=== PATIENT | male | born 1985 | race Caucasian/White ===

== ENCOUNTER 2022-03-16 13:08 | Outpatient (CLI) | payer OTHER ==
[2022-03-16 13:50] VITALS: BP 110/72
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
== END 2022-03-16 13:09 | disposition home or self-care (01) ==
LOC: SC 13:08
PROVIDERS: ATTEND Nurse Practitioner Family
DX: R06.83 Snoring (principal); G47.8 Other sleep disorders; R51.9 Headache, unspecified; G47.10 Hypersomnia, unspecified; R53.83 Other fatigue; F32.A Depression, unspecified; E66.9 Obesity, unspecified; Z68.34 Body mass index [BMI] 34.0-34.9, adult
CPT/HCPCS: 99203; 99212

== ENCOUNTER 2022-04-28 15:09 | Outpatient (CLI) | payer OTHER ==
[2022-04-28 15:57] VITALS: BP 120/64
--- NOTE | 2022-04-28 15:57 | SLEEP CARE CONSULTATION ---
Information from patient questionnaire entered by Yamel Lal. I have reviewed and concur with the information entered by Yamel Lal. This document represents the service I personally performed and the decisions made by me, Padmini Ware ARNP. History of Present Illness Service Date and Time: 04/28/2022 1509 Initial [place] Sleepiness Scale score: 12 (02/23/22) Current [place] Sleepiness Scale score: 15 Additional HPI information: LILIAN RALPH returns for follow up and results of the recently performed polysomnography. I explained the pathophysiology behind obstructive sleep apnea. We then spent quite a bit of time discussing different treatment options. For mild obstructive sleep apnea, surgery and oral appliance are alternatives to nasal CPAP therapy but in moderate or severe cases, nasal CPAP is the most effective and reliable treatment. Because apnea is primarily in supine position, then positional management therapy could be effective. Methods discussed such as positioning with pillows to prevent supine sleep. I reviewed the impact of weight changes on sleep apnea and strongly recommended losing weight. After some discussion, the patient opted to go with the nasal CPAP therapy. Nasal autoCPAP set at 4-15 cmH20 will be ordered with rationale explained. A manual titration study will be ordered if unable to find optimal pressure with office adjustments. I explained how CPAP machine works and what to expect when using the machine. Using CPAP every night in order to get used to it was emphasized. Patient advised to put CPAP mask on before getting into bed so as not to fall asleep without CPAP. To assist acclimation to CPAP use, it could also be used for a short time during day while reading or watching TV. The patient was instructed to call the CPAP supplier to discuss any mechanical problem that may occur. If the mask given is uncomfortable or is difficult to keep on through the night even with adjustment, contact the CPAP supplier as many will replace with another mask style if notified before 30 days. If snoring or perceives is not getting enough air or too much air from the machine, notify this office. Patient counseled not drink alcohol less than 4 hours before bedtime as it can increase snoring and apnea. Patient was cautioned about risks of drowsy driving until sleepiness symptoms resolve. Sleep Study - Results Type of Sleep Study: Polysomnography (COMPLETED 04/12/22) Prior sleep studies: No Polysomnography/Home Sleep Study results: IMPRESSION: The quality of the study is good. The patient had normal sleep efficiency. The sleep architecture was abnormal for sleep fragmentation and reduced amount of time spent in slow wave sleep (N3). Respiratory monitoring showed moderate obstructive sleep apnea-hypopnea (AHI = 26.6) associated with frequent arousals, oxyhemoglobin desaturation and mild hypoxia (bertram oxygen saturation of 84%). The respiratory events occurred almost exclusively during supine sleep (supine AHI = 33.8; non-supine = 2.71). Snore was light to loud in intensity. There was no significant periodic leg movement of sleep. Cardiac rhythm was normal sinus rhythm without significant arrhythmia. No abnormal behavior (parasomnia) observed during the n ight. Allergies and Home Medications Drug allergies reviewed: Yes (NKDA) Home medication list reviewed: Yes (no changes) Review of Systems Review of systems same as previous: Yes (no changes) Physical Exam Vital signs obtained and entered by: YAMEL Fajardo MA Blood Pressure: 120/64 (left arm) Cuff size: regular Heart Rate: 71 O2 Saturation: 97 Height: 5 ft 7.5 in Weight: 226 lb 3.2 oz Body Mass Index: 34.9 BMI Classification: Obese Impression and Plan 1. Obstructive Sleep Apnea-Hypopnea Syndrome, moderate, with lowest oxygen saturation of 84%. Obviously this is the cause of the patients symptoms of unrefreshed sleep, and excessive daytime sleepiness. Positive pressure therapy could benefit anxiety, depression and migraines. As mentioned above, the patient will be started on nasal autoCPAP therapy with pressure set at 4-15 cmH2O. A manual titration study will be completed if unable to find optimal treatment pressure with office adjustments. Compliance guidelines also reviewed. A copy of compliance guidelines will be given for reference at check out. Because the apnea is more severe supine, I instructed to avoid sleeping supine using pillow positioning until able to start CPAP use. 2. Hypoxemia, mild, with a bertram oxygen saturation of 84% and 9.0 minutes spent under 90%. His baseline oxygen saturation was normal with an average oxygen saturation of 94%. * Nasal auto CPAP therapy, pressure at 4-15 cm H2O. * Attempt to lose weight. * Avoid alcohol consumption near bedtime. * Avoid supine sleep until using CPAP. * The patient is again cautioned about driving until sleepiness completely resolves. * Return one month after CPAP obtained. I will assess response to therapy and compliance at that time. Counseling Topics: Weight loss health impact Visit Type: In Office Time Spent with Patient (minutes): 21 Provider Statement: I spent 100% of the Face to Face Visit with the patient with greater than 50% spent counseling the patient and coordination of care.
== END 2022-04-28 15:10 | disposition home or self-care (01) ==
LOC: SC 15:09
PROVIDERS: ATTEND Nurse Practitioner Family
DX: G47.33 Obstructive sleep apnea (adult) (pediatric) (principal); R09.02 Hypoxemia; E66.9 Obesity, unspecified; Z68.34 Body mass index [BMI] 34.0-34.9, adult
CPT/HCPCS: 99212; 99213

== ENCOUNTER 2022-06-02 11:46 | Emergency (ER) | payer OTHER ==
[2022-06-02 11:58] VITALS: BP 115/73
--- NOTE | 2022-06-02 12:22 | ED Physician Documentation ---
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 Since then he has had a recurrent issue with pain in the right foot in the lateral distal foot. Its not too bad if he can walk on the medial foot. And compression helps. 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 Subsequent to that today he has increased pain and cannot walk. PD PAST MEDICAL HISTORY - Present Medications Home Medications: Ambulatory Orders Medication Instructions Recorded Confirmed SUMAtriptan [Imitrex] 25 mg PO ONCE PRN 06/02/22 06/02/22 - Allergies Allergies/Adverse Reactions: Allergies Allergy/AdvReac Type Severity Reaction Status Date / Time No Known Drug Allergies Allergy Verified 06/02/22 11:58 PD ED PE NORMAL - Vitals Vital signs reviewed: Yes - General General: Alert and oriented X 3, No acute distress - Extremities Extremities: Other (Focally tender to the distal fourth metatarsal of the right foot without deformity. He has mild pain with range of motion of the third and fourth toes of the right foot. No neurovascular compromise. No proximal or mid foot tenderness. No tenderness of the plantar fascia.) - Neuro Neuro: Alert and oriented X 3, Normal speech Results - Vitals Vitals: Vital Signs - 24 hr 06/02/22 11:53 Temperature 36.4 C L Heart Rate 79 Respiratory 16 Rate Blood Pressure 115/73 O2 Saturation 97 Oxygen O2 Source Room air - Rads (name of study) Three-view x-ray of the right foot is unremarkable. Relevant Findings:: Final report received, EMP independent interpretation of test PD Medical Decision Making - ED course ED course: 37-year-old gentleman with intermittent foot pain after an injury last year. Likely a recurrent tendinitis likely of the right foot. He is needing crutches today and x-ray did not show any abnormalities. Advised he probably should follow-up with a sign poster. Departure - Departure Disposition: 01 Home, Self Care Clinical Impression: Tendinitis of right foot Condition: Good Record reviewed to determine appropriate education?: Yes Instructions: Tendinitis Foot Comments: Tylenol and/or ibuprofen as needed for pain. Talk with your flight surgeon about a referral to a sign poster for further evaluation and treatment. Return for new or worsening symptoms. Forms: Activity restrictions Discharge Date/Time: 06/02/22 12:40
--- NOTE | 2022-06-02 12:39 | XRAY Report ---
PROCEDURE: Foot 3 View RT INDICATIONS: Trauma TECHNIQUE: 3 views of the foot were acquired. COMPARISON: None. FINDINGS: Bones: No fractures or dislocations. No suspicious bony lesions. Soft tissues: No tibiotalar joint effusion. Achilles tendon appears normal. IMPRESSION: No acute osseous abnormality. Reviewed by: Lukas Villalta MD on 06/02/2022 12:38 PM [facility] Approved by: Lukas Villalta MD on 06/02/2022 12:38 PM [facility] Station ID: [id number]
== END 2022-06-02 12:40 | disposition home or self-care (01) ==
LOC: ED 11:46
DX: M77.51 Other enthesopathy of right foot and ankle (principal)
CPT/HCPCS: 99283

== ENCOUNTER 2022-07-28 13:50 | Outpatient (CLI) | payer OTHER ==
--- NOTE | 2022-07-28 14:27 | Sleep Patient Instructions ---
Sleep Center Visit Summary - Patient Visit Information Reason for Visit: First compliance follow up for CPAP therapy - Patient Instructions Additional Instructions: You were here for follow up of CPAP therapy. You will be continued on CPAP therapy with pressure changed to 10-14 cmH2O. Please let us know if the pressure change is uncomfortable and we can make further adjustments of the pressure. You should follow up with sleep care in 1-2 months. You may contact us sooner for any questions or concerns. - Clinic Information Contact: [facility] [address] [place] [address] [email or web address] T: [phone]
--- NOTE | 2022-07-28 14:32 | SLEEP CARE CONSULTATION ---
Information from patient questionnaire entered by Yamel Lal. I have reviewed and concur with the information entered by Yamel Lal. This document represents the service I personally performed and the decisions made by , Padmini Ware ARNP. History of Present Illness Service Date and Time: 07/28/2022 1350 Previous diagnosis: Moderate, Obstructive Sleep Apnea-Hypopnea Syndrome AHI: 26.6 (in 2022) Reason for follow up: first compliance Equipment type: CPAP (Resmed Airsense 11, s/u 04/2022) Equipment obtained from: [facility] (got initial supplies) Mask style: Full face Mask brand: Resmed (Airfit F20) Backup mask available: No (will keep old mask when replaced) Last cushion change: 1 month Prior sleep studies: No Type of Sleep Study: Polysomnography (COMPLETED 04/12/22) HPI additional information: LILIAN RALPH was diagnosed to have moderate, AHI 26.6, obstructive sleep apnea-hypopnea syndrome and returned today for CPAP therapy first compliance follow-up. Sleep Study - Results Type of Sleep Study: Polysomnography (COMPLETED 04/12/22) Prior sleep studies: No CPAP Compliance Data - Data Reviewed with Patient Average duration of nightly device use: 4 hours 57 minutes Compliance rate %: 60 ( days used) Current pressure setting (cmH2O): 4-15 (median 9.1, avg 12.6, max 13.7) Average residual AHI: 0.8 Central apnea: 0.1 Obstructive apnea: 0.3 Hypopnea: 0.4 Average large leak: 0.3 L/min Subjective Missed days of use due to: reports: travel (for work), other (fell asleep with mask on) Patient concerns: reports: mask discomfort (branham on face), condensation in mask/hose (when not able to use heated hose; put on hose cover with improvement). denies: aerophagia, air blowing in eyes, mask leak noise, nasal congestion, dry mouth, nose, throat, epistaxis Observed to snore while using device: No Current pressure setting perceived as: comfortable On therapy, patient: reports: sleeping better, awakening more refreshed. denies: drowsiness while driving Initial [place] Sleepiness Scale score: 12 (02/23/22) Current [place] Sleepiness Scale score: 10 Allergies and Home Medications Known drug allergies: No Drug allergies reviewed: Yes Home medication list reviewed: Yes (no changes) Allergy and home medication list: Allergies No Known Drug Allergies Allergy (Verified 07/27/22 13:37) Review of Systems Review of systems same as previous: Yes (no changes) Physical Exam Vital signs obtained and entered by: YAMEL Fajardo MA Blood Pressure: 100/60 (LEFT ARM) Cuff size: regular Heart Rate: 84 O2 Saturation: 98 Height: 5 ft 7.5 in Weight: 244 lb 6.4 oz Body Mass Index: 37.7 BMI Classification: Obese Impression and Plan 1. Obstructive Sleep Apnea-Hypopnea Syndrome, moderate, with fair treatment compliance and good apnea control. On CPAP therapy, the patient has better sleep quality and is more rested overall. He is trying to be compliant and has been improving over time. His cat chewed on his heated hose and he had to switch to the regular hose. He got some condensation that improved with reducing humidity and puttin on a hose cover. The patients pressure will be changed to autoCPAP 10-14 cmH20 to reflect pressure being used. Patient advised to contact me if pressure change is uncomfortable so that it can be adjusted. Goals for apnea control discussed. Patient's apnea severity and rationale for treatment to reduce apnea, improve sleep quality and reduce cardiovascular and cerebrovascular events was reviewed. I also reviewed the benefit of consistent device use of CPAP for depression, anxiety and migraines. 2. Obesity, unspecified. Currently patients BMI is 37.7. Obesity increases the risk of apnea, CPAP pressure requirements and overall health risks especially cardiovascular and diabetes. Thus patient is advised to lose weight. * Change auto CPAP pressure to 10-14 cmH2O * Notify me if snoring with mask or feeling that the pressure is too much or too little * Attempt to lose weight * Call this office if any problems using CPAP * Return for follow up in 1-2 months, or sooner if concerns arise Counseling Topics: Spare mask, Weight loss health impact Visit Type: In Office Time Spent with Patient (minutes): 20 Provider Statement: I spent 100% of the Face to Face Visit with the patient with greater than 50% spent counseling the patient and coordination of care.
[2022-07-28 14:53] VITALS: BP 100/60
== END 2022-07-28 13:51 | disposition home or self-care (01) ==
LOC: SC 13:50
PROVIDERS: ATTEND Nurse Practitioner Family
DX: G47.33 Obstructive sleep apnea (adult) (pediatric) (principal); E66.9 Obesity, unspecified; Z68.37 Body mass index [BMI] 37.0-37.9, adult
CPT/HCPCS: 99212; 99213

== ENCOUNTER 2022-09-12 14:26 | Outpatient (CLI) | payer OTHER ==
--- NOTE | 2022-09-12 14:59 | SLEEP CARE CONSULTATION ---
Information from patient questionnaire entered by Enzo Lal. I have reviewed and concur with the information entered by Enzo Lal. This document represents the service I personally performed and the decisions made by , Padmini Ware ARNP. History of Present Illness Service Date and Time: 09/12/2022 1426 Previous diagnosis: Moderate, Obstructive Sleep Apnea-Hypopnea Syndrome AHI: 26.6 (in 2022) Reason for follow up: one month (F/U) Equipment type: CPAP (Resmed Airsense 11, s/u 04/2022) Equipment obtained from: [employer] (needs to order supplies) Mask style: Full face Mask brand: Resmed (poss. Airfit F20) Backup mask available: No (will keep old mask when replaced) Last cushion change: has not yet Prior sleep studies: No Type of Sleep Study: Polysomnography (COMPLETED 04/12/22) HPI additional information: LILIAN RALPH was diagnosed to have moderate, AHI 26.6, obstructive sleep apnea-hypopnea syndrome and returned today for CPAP therapy one month follow-up. Sleep Study - Results Type of Sleep Study: Polysomnography (COMPLETED 04/12/22) Prior sleep studies: No CPAP Compliance Data - Data Reviewed with Patient Average duration of nightly device use: 5 HRS 50 MINS Compliance rate %: 70 (08/12/22-09/10/22; days used) Current pressure setting (cmH2O): 10-14 Average residual AHI: 0.6 Central apnea: 0.2 Obstructive apnea: 0.2 Hypopnea: 0.2 Average large leak: 0.1 L/PM Subjective Missed days of use due to: reports: other (change in medication to Prozac, affected using mask) Patient concerns: reports: mask discomfort, condensation in mask/hose (heated hodr destroyed by cat), other (new medication/fatigue induced by the med). denies: aerophagia, air blowing in eyes, mask leak noise, nasal congestion, dry mouth, nose, throat, epistaxis Observed to snore while using device: No Current pressure setting perceived as: comfortable On therapy, patient: reports: sleeping better, awakening more refreshed, being more awake and alert during the day, more rested overall, other (he is sleeping more hours which is a big change). denies: drowsiness while driving Initial Hudson Sleepiness Scale score: 12 (02/23/22) Current Hudson Sleepiness Scale score: 13 (09/12/22) Allergies and Home Medications Known drug allergies: No Drug allergies reviewed: Yes Home medication list reviewed: Yes (Prozac) Allergy and home medication list: Allergies No Known Drug Allergies Allergy (Verified 09/11/22 16:44) Review of Systems Review of systems same as previous: No (Depression/PTSD) Physical Exam Vital signs obtained and entered by: ENZO Fajardo MA Blood Pressure: 132/76 (LEFT ARM) Cuff size: regular Heart Rate: 78 O2 Saturation: 97 Height: 5 ft 7.5 in Weight: 230 lb 3.2 oz Body Mass Index: 35.5 BMI Classification: Obese Impression and Plan 1. Obstructive Sleep Apnea-Hypopnea Syndrome, moderate, with good treatment compliance and good apnea control. On CPAP therapy, the patient has better sleep quality and is more rested overall. Patient has significant improvement of their sleep apnea and is satisfied with current CPAP therapy. He is soon to transition to [facility] from the [employer] and has questions about how this affects his supplies and therapy. I reviewed with him about how soon his machine will be payed off and his yearly need for an appointment with a sleep provider. He will be going back to [place] and will need to establish care and supplies there after he moves. Patient denies problems with oral dryness, nasal congestion, epistaxis, skin irritation or aerophagia. Patient's apnea severity and rationale for treatment to reduce apnea, improve sleep quality and reduce cardiovascular and cerebrovascular events was reviewed. I also reviewed the benefit of consistent device use of CPAP for depression, anxiety and migraines. 2. Obesity, unspecified. Currently patients BMI is 35.5. Obesity increases the risk of apnea, CPAP pressure requirements and overall health risks especially cardiovascular and diabetes. Thus patient is advised to lose weight. * Continue auto CPAP pressure at 10-14 cmH2O * Notify me if snoring with mask or feeling that the pressure is too much or too little * Attempt to lose weight * Call this office if any problems using CPAP * Return for follow up in 3 months, or sooner if concerns arise Counseling Topics: Spare mask, Weight loss health impact Visit Type: In Office Time Spent with Patient (minutes): 23 Provider Statement: I spent 100% of the Face to Face Visit with the patient with greater than 50% spent counseling the patient and coordination of care.
[2022-09-12 15:03] VITALS: BP 132/76
== END 2022-09-12 14:27 | disposition home or self-care (01) ==
LOC: SC 14:26
PROVIDERS: ATTEND Nurse Practitioner Family
DX: G47.33 Obstructive sleep apnea (adult) (pediatric) (principal); E66.9 Obesity, unspecified; Z68.35 Body mass index [BMI] 35.0-35.9, adult
CPT/HCPCS: 99212; 99213

== ENCOUNTER 2022-11-30 13:04 | Outpatient (CLI) | payer OTHER ==
--- NOTE | 2022-11-30 13:31 | Sleep Patient Instructions ---
Sleep Center Visit Summary - Patient Visit Information Reason for Visit: 4 MONTH FOLLOWUP FOR PAP THERAPY - Patient Instructions Additional Instructions: You were here for follow up of CPAP therapy. You will be continued on CPAP therapy with pressure at 10-12.4 cmH2O. Please let us know if the pressure change is uncomfortable and we can make further adjustments of the pressure. You should follow up with sleep care in 6 months. You may contact us sooner for any questions or concerns. - Clinic Information Contact: [facility] [address] [place] [address] [email or web address] T: [phone]
--- NOTE | 2022-11-30 13:34 | SLEEP CARE CONSULTATION ---
Information from patient questionnaire entered by Enzo Lal. I have reviewed and concur with the information entered by Enzo Lal. This document represents the service I personally performed and the decisions made by , Padmini Ware ARNP. History of Present Illness Service Date and Time: 11/30/2022 1304 Previous diagnosis: Moderate, Obstructive Sleep Apnea-Hypopnea Syndrome AHI: 26.6 (in 2022) Reason for follow up: other (4 MONTH F/U) Equipment type: CPAP (RESMED AirSense 11, s/u 04/2022) Equipment obtained from: [email or web address] (getting supplies) Mask style: Full face Backup mask available: Yes (other mask) Last cushion change: 2 months Prior sleep studies: No Type of Sleep Study: Polysomnography (COMPLETED 04/12/22) HPI additional information: LILIAN RALPH was diagnosed to have moderate, AHI 26.6, obstructive sleep apnea-hypopnea syndrome and returned today for CPAP therapy 4 month follow-up. Sleep Study - Results Type of Sleep Study: Polysomnography (COMPLETED 04/12/22) Prior sleep studies: No CPAP Compliance Data - Data Reviewed with Patient Average duration of nightly device use: 6 HRS 5 MINS Compliance rate %: 81 (07/31/22-11/27/22; 101/120 days used) Current pressure setting (cmH2O): 10-14 Average residual AHI: 0.6 Central apnea: 0.2 Obstructive apnea: 0.1 Average large leak: 0.1 L/min Subjective Missed days of use due to: reports: other (falling asleep in chair) Patient concerns: reports: aerophagia, condensation in mask/hose (not a big issue), dry mouth, nose, throat. denies: mask discomfort, air blowing in eyes, mask leak noise, nasal congestion, epistaxis Observed to snore while using device: No Current pressure setting perceived as: too high On therapy, patient: reports: sleeping better, awakening more refreshed, being more awake and alert during the day, more rested overall. denies: drowsiness while driving Initial Alfred Sleepiness Scale score: 12 (02/23/22) Current Alfred Sleepiness Scale score: 12 (11/30/22) Allergies and Home Medications Known drug allergies: No Drug allergies reviewed: Yes Home medication list reviewed: Yes (Prozac is new) Allergy and home medication list: Allergies No Known Drug Allergies Allergy (Verified 11/29/22 16:45) Home Medications Medication Instructions Recorded Confirmed Last Taken Type SUMAtriptan [Imitrex] 25 mg PO ONCE PRN 06/02/22 11/30/22 Unknown History FLUoxetine [PROzac] See Rx Instructions .ROUTE .COMPLEX 09/12/22 11/30/22 Unknown History Review of Systems Review of systems same as previous: Yes (no changes) Physical Exam Vital signs obtained and entered by: ENZO Fajardo MA Blood Pressure: 128/90 (LEFT ARM) Cuff size: regular Heart Rate: 90 O2 Saturation: 98 Height: 5 ft 7.5 in Weight: 223 lb 3.2 oz Body Mass Index: 34.4 BMI Classification: Obese Impression and Plan 1. Obstructive Sleep Apnea-Hypopnea Syndrome, moderate, with good4 treatment c ompliance and good apnea control. On CPAP therapy, the patient has better sleep quality and is more rested overall. He states he has been getting occasional bloating although it has improved recently. His residual AHI is 0.6. To reduce symptoms of aerophagia, the CPAP pressure will be reduced to 10-12.4 cmH2O. Patient advised to contact me if this does not reduce symptoms or if pressure change uncomfortable. Patient's apnea severity and rationale for treatment to reduce apnea, improve sleep quality and reduce cardiovascular and cerebrovascular events was reviewed. I also reviewed the benefit of consistent device use of CPAP for depression, anxiety and migraines. 2. Obesity, unspecified. Currently patients BMI is 34.4. Obesity increases the risk of apnea, CPAP pressure requirements and overall health risks especially cardiovascular and diabetes. Thus patient is advised to continue to try to lose weight. * Change auto CPAP pressure to 10-12.4 cmH2O * Notify me if snoring with mask or feeling that the pressure is too much or too little * Attempt to lose weight * Call this office if any problems using CPAP * Return for follow up in 6 months, or sooner if concerns arise Counseling Topics: Spare mask, Weight loss health impact Prescriptions: Other (Pressure change) Visit Type: In Office Time Spent with Patient (minutes): 20 Provider Statement: I spent 100% of the Face to Face Visit with the patient with greater than 50% spent counseling the patient and coordination of care.
[2022-11-30 13:36] VITALS: BP 128/90; O2SAT 98
== END 2022-11-30 13:05 | disposition home or self-care (01) ==
LOC: SC 13:04
PROVIDERS: ATTEND Nurse Practitioner Family
DX: G47.33 Obstructive sleep apnea (adult) (pediatric) (principal); E66.9 Obesity, unspecified; Z68.34 Body mass index [BMI] 34.0-34.9, adult
CPT/HCPCS: 99212; 99213